=== PATIENT | female | born 1980 | race African-American/Black ===

== ENCOUNTER 2021-12-07 13:15 | Observation (INO) ==
[2021-12-07 18:39] LABS: Basophils % 0.3 % (0.0-0.8); Eosinophils # 0.1 10*3/uL (0.0-0.87); Eosinophils % 1.2 % (0.00-10.9); Hematocrit 39.8 VOL% (35.7-47.0); Hemoglobin 12.9 GM/DL (12.0-16.0); Immature Granulocytes % 0.3 %; Immature Granulocytes Absolute 0.04 #; Lymphocytes # 3.6 10*3/uL (1.4-4.0); Lymphocytes % 31.3 % (21.3-54.2); Mean Corpuscular HGB Conc 32.4 GM/DL (32-36); Mean Corpuscular Volume 89.2 FL (87-102); Mean Platelet Volume 8.4 FL (9.6-12.0); Monocytes % 5.5 % (1.7-12.7); Neutrophils % 61.4 % (38.7-73.9); Platelet Count 423 T/CUMM (130-400); Red Blood Count 4.46 MC/CUMM (3.8-5.5); Red Cell Distribution Width 13.6 % (9.3-17.3); White Blood Count 11.5 T/CUMM (4-12)
[2021-12-07 18:47] LABS: Mucus,Urine Many /LPF (Occasional); RBC,Urine 1 /HPF (0-4); Squamous Epithelial Cell,Urine Occasional /HPF (0-10)
[2021-12-07 18:48] LABS: Urine Color Yellow (Yellow)
[2021-12-07 18:49] LABS: Bilirubin,Urine Negative (Negative); Blood, Urine Negative (Negative); Glucose,Urine (UA) 100 mg/dL (Negative); Ketones,Urine Trace mg/dL (Negative); Nitrite,Urine Negative (Negative); Protein,Urine Negative (Negative); Urine Appearance Clear (Clear); Urine Specific Gravity 1.032 (1.001-1.035); Urine Urobilinogen 0.2 eU/dL (<2.0); Urine pH 5.5 (4.5-8.0)
[2021-12-07 18:49] LABS: PT Patient Result 11.3 SECS (10.5-12.0); Partial Thromboplastin Time 29.1 SECS (23.8-32.1)
[2021-12-07 19:39] LABS: Barbiturates Screen,Urine Negative (Negative); Benzodiazepines Screen,Urine Negative (Negative); Cannabinoid Screen,Urine Negative (Negative); Opiate Screen,Urine Negative (Negative); Phencyclidine Screen,Urine Negative (Negative)
[2021-12-07 20:46] LABS: Alanine Aminotransferase 12 U/L (13-56); Albumin 3.9 G/DL (3.4-5.0); Alkaline Phosphatase 89 U/L (45-117); Aspartate Amino Transferase 10 U/L (0-37); Bilirubin,Total < 0.39 MG/DL (0.20-1.00); Blood Urea Nitrogen 14 MG/DL (7-18); Calcium 9.5 MG/DL (8.5-10.1); Carbon Dioxide 28 MMOL/L (21-32); Estimated Glom Filtration Rate 113 ML/MIN; Glucose 174 MG/DL (74-106); Osmolality,Calculated 279.7 MOS/KG (273-304); Potassium 3.6 MMOL/L (3.5-5.1); Sodium 138 MMOL/L (136-145); Total Protein 7.8 G/DL (6.4-8.2)
[2021-12-07] MEDS ORDERED: DEXTROSE 10% 250 ML BAG IV PRN (22:44)
[2021-12-07] MEDS ORDERED: GLUCAGON 1 MG VIAL IM PRN (22:44)
[2021-12-07] MEDS ORDERED: hydrALAZINE 20 MG/1 ML VIAL IV PRN (22:48)
[2021-12-08 06:51] LABS: Calcium 8.7 MG/DL (8.5-10.1); Osmolality,Calculated 282.7 MOS/KG (273-304); Potassium 3.6 MMOL/L (3.5-5.1); Risk Ratio 4.77; Thyroid Stimulating Hormone 1.98 uIU/ml (0.358-3.74)
[2021-12-08] MEDS: lisinopriL 20 MG TABLET PO SCH (10:37)
[2021-12-08] MEDS: ENOXAPARIN 40 MG/0.4 ML SYRINGE SUBCUT SCH (10:37)
[2021-12-08] MEDS: INSULIN LISPRO 100 UNIT/ML SUBCUT SCH ×4 (10:37→20:18)
[2021-12-08] MEDS: ASPIRIN CHEW 81 MG TABLET PO SCH (10:37)
[2021-12-08] MEDS ORDERED: ERGOCALCIFEROL 50,000 UNIT CAPSULE PO SCH (13:00)
[2021-12-08] MEDS: carvediloL 3.125 MG TABLET PO SCH ×2 (15:52→20:17)
[2021-12-08] MEDS ORDERED: ATORVASTATIN 20 MG TABLET PO SCH (21:00)
[2021-12-09 07:47] VITALS: BP 117/73
[2021-12-09] MEDS: INSULIN LISPRO 100 UNIT/ML SUBCUT SCH (08:27)
[2021-12-09] MEDS: lisinopriL 20 MG TABLET PO SCH (08:49)
[2021-12-09] MEDS: carvediloL 3.125 MG TABLET PO SCH (08:49)
[2021-12-09] MEDS: ENOXAPARIN 40 MG/0.4 ML SYRINGE SUBCUT SCH (08:49)
[2021-12-09] MEDS: ASPIRIN CHEW 81 MG TABLET PO SCH (08:49)
[2021-12-09] MEDS ORDERED: PANTOPRAZOLE 40 MG TABLET PO SCH (09:00)
== END 2021-12-09 10:58 | disposition home health service (06) ==
LOC: N.ED 13:15 → N.EDINP 22:43 → SUATTDRO 22:43 → INTOOBSV 22:43 → N.TELEN 12-08 01:44
PROVIDERS: ADMIT Internal Medicine; ATTEND Internal Medicine Geriatric Medicine